=== PATIENT | male | born 1970 | race Caucasian/White ===

== ENCOUNTER 2018-04-30 08:58 | Day surgery (SDC) | payer OTHER | END 2018-04-30 15:40 | disposition home or self-care (01) | LOC: AMB-ENDOS 08:58 | DX: K64.1 Second degree hemorrhoids (principal) ==

== ENCOUNTER 2018-06-23 07:12 | Day surgery (SDC) | payer OTHER ==
[~2018-06-23 07:12] MED LIST: AMITRIPTYLINE PO; CELEXA20 MG PO; COZAAR50 MG PO; FORTAMET1000 MG PO; HORIZANT300 MG PO; LIPITOR20 MG PO; RESTORIL30 M1 PO; STELARA
== END 2018-06-23 17:05 | disposition home or self-care (01) ==
LOC: CIR.AMB 07:12
DX: K64.8 Other hemorrhoids (principal)